=== PATIENT | male | born 1985 | race Caucasian/White ===

== ENCOUNTER 2016-12-13 11:36 | Emergency (ER) | payer OTHER ==
--- NOTE | 2016-12-13 12:00 | ED Physician Documentation ---
Abdominal Pain - HISTORIAN Historian: patient - HPI Chief Complaint: Abdominal Pain Onset: hours (6 hours) Duration: constant, worse Timing: still present Context: denies: out of country travel, bad food Severity: moderate Quality: sharp Associated Symptoms: nausea, vomiting (dry heaves). denies: fever, chills Exacerbated by: nothing Relieved by: nothing Further Comments: yes - ROS CONST: no problems GI/: denies: black stools, bloody urine, bloody stools, dark urine CVS/RESP: none - SOCIAL HX Smoking History: less than 1 pack/day (1/2 ppd) Alcohol Use: none Drug Use: none - FAMILY HX Family History: none - PAST HX Past History: kidney stones Other History: diabetes Type 2 Home Medications: Ambulatory Orders Medication Instructions Recorded Amlodipine Besylate/Benazepril 1 tab PO DAILY 12/13/16 [Amlodipine-Benazepril 10-20 mg] Aspirin [Adult Low Dose Aspirin EC] 81 mg PO DAILY 12/13/16 Atorvastatin Calcium [Lipitor] 40 mg PO DAILY 12/13/16 Carvedilol [Coreg] 25 mg PO BID 12/13/16 HYDROmorphone HCL [Dilaudid] 2 mg PO Q4 PRN #15 tablet 12/13/16 Metformin HCl [Glucophage] 500 mg PO BID 12/13/16 Omeprazole [Prilosec] 40 mg PO BID 12/13/16 Tamsulosin HCl [Flomax] 0.4 mg PO [id number] #7 cap.er.24h 12/13/16 Trazodone HCl [Trazodone HCl] 50 mg PO HS 12/13/16 buPROPion [Wellbutrin Sr] 150 mg PO DAILY 12/13/16 Allergies/Adverse Reactions: Allergies Allergy/AdvReac Type Severity Reaction Status Date / Time No Known Allergies Allergy Verified 12/13/16 12:21 - VITAL SIGNS Vital Signs: Vital Signs Temp Pulse Resp BP Pulse Ox 98.8 F 79 20 133/78 98 12/13/16 14:14 12/13/16 14:14 12/13/16 14:14 12/13/16 14:14 12/13/16 14:14 Progress - Progress Progress: 12:23 Toradol did not help much with the pain. It has not changed in character much 12:59 Fentanyl helped a little with the pain but now is back again. Will try some diluadid. 13:14 Patient feeling better with dilaudid. 13:56 Patient is starting to have some pain, will give another shot of dilaudid. ED Results Lab/Radiology - Lab Results Lab Results: Lab Results 12/13/16 12/13/16 12:30 12:30 WBC 10.90 K/ul K/ul (4.00-12.00) RBC 5.46 M/ul H M/ul (3.90-5.20) Hgb 16.0 g/dL g/dL (12.0-18.0) Hct 47.7 % % (37.0-53.0) MCV 87.3 fl fl (80.0-100.0) MCH 29.3 pg pg (28.0-34.0) MCHC 33.6 g/dL g/dL (30.0-36.0) RDW 13.1 % % (11.3-14.3) Plt Count 165 K/mm3 K/mm3 (130-400) Neut % (Auto) 63.4 % % (39.0-79.0) Lymph % (Auto) 25.3 % % (16.0-50.0) Eagle % (Auto) 5.4 % % (0.0-11.0) Eos % (Auto) 2.8 % % (0.0-6.8) Baso % (Auto) 0.9 (0.0-1.5) Neut # (Auto) 6.9 # k/uL # k/uL (1.4-7.7) Lymph # (Auto) 2.8 # k/uL # k/uL (0.6-4.0) Eagle # (Auto) 0.6 # k/uL # k/uL (0.0-0.9) Eos # (Auto) 0.3 # k/uL # k/uL (0.0-0.6) Baso # (Auto) 0.1 # k/uL # k/uL (0.0-0.5) Reactive Lymphs % 2.2 % % (0.0-5.0) Reactive Lymphs # 0.2 # k/uL # k/uL (0.0-0.8) Sodium 135 mmol/L L mmol/L (136-145) Potassium 4.1 mmol/L mmol/L (3.5-5.0) Chloride 100 mmol/L mmol/L (98-110) Carbon Dioxide 30 mmol/L mmol/L (20-32) BUN 13 mg/dL mg/dL (10-26) Creatinine 1.0 mg/dL mg/dL (0.4-1.5) Estimated Creat Clear 157 Est GFR ( Amer) > 60 (60 - ) Est GFR (Non-Af Amer) > 60 (60 - ) Glucose 185 mg/dL H mg/dL (70-99) Calcium 10.2 mg/dL mg/dL (8.5-10.5) Total Bilirubin 0.3 mg/dL mg/dL (0.2-1.2) AST 26 U/L U/L (0-41) ALT 39 U/L U/L (0-45) Alkaline Phosphatase 74 U/L U/L (46-116) Total Protein 8.1 g/dL g/dL (6.0-8.5) Albumin 5.1 g/dL g/dL (3.0-5.5) Amylase 71 U/L U/L (20-104) - Radiology Radiology Impressions: Name: JOYCE CM Date: Dec 13, 2016 12:40:26 PM CDT Modality Type: CT\SR Gender: M Description: CT ABD & PELVIS W/O CO : 89 Institution: [facility] Physician: DONNA HAWKINS - ER CT abdomen pelvis without contrast History:PT STATES LEFT ABDOMEN PAIN THAT GOES INTO BACK Technique: Transaxial computed tomographic images of the abdomen and pelvis were obtained without the use of intravenous contrast according to standard protocol. Findings: The lung bases are clear. Heart size is normal. The liver, gallbladder, pancreas, spleen, and adrenal glands are normal. There is left mid ureteral calculus measuring 5 mm which results in left proximal hydronephrosis and hydroureter. No additional intrarenal calculi present. No bowel wall thickening or dilation. Normal appendix. Trace atherosclerosis is present within the right common iliac artery. No adenopathy present. The bladder is normal. There is no free fluid. No osseous acute injury. Impression: 1. Left mid ureteral calculus measuring 5 mm which results in left proximal hydronephrosis and hydroureter. 2. No additional intrarenal calculi present - Orders Orders: ED Orders Category Date Time Status Place IV Lock 1T Care 12/13/16 12:[address] ABD & PELVIS W/O CON Stat Exams 12/13/16 Taken AMYLASE Routine Lab 12/13/16 12:30 Completed CBC/PLATELET/DIFF Routine Lab 12/13/16 12:30 Completed CMP Routine Lab 12/13/16 12:30 Completed URINALYSIS Routine Lab 12/13/16 Ordered 0.9 % Sodium Chloride [Normal Saline] 1,000 ml Med 12/13/16 12:11 Discontinued IV .STK-MED 0.9 % Sodium Chloride [Normal Saline] 1,000 ml Med 12/13/16 12:30 Discontinued IV Q10H HYDROmorphone HCL/PF [Dilaudid] Med 12/13/16 12:58 Discontinued 1 mg IVP NOW ONE HYDROmorphone HCL/PF [Dilaudid] Med 12/13/16 13:55 Discontinued 1 mg IVP NOW ONE Ketorolac Tromethamine [Toradol] Med 12/13/16 12:07 Discontinued 30 mg IVP NOW ONE Tamsulosin HCl [Flomax] Med 12/13/16 13:12 Discontinued 0.4 mg PO .STK-MED ONE Tamsulosin HCl [Flomax] Med 12/13/16 18:00 Discontinued 0.4 mg PO [id number] fentaNYL CITRATE/PF [Duragesic] Med 12/13/16 12:26 Discontinued 100 mcg .ROUTE .STK-MED ONE fentaNYL CITRATE/PF [Duragesic] Med 12/13/16 12:26 Discontinued 50 mcg IVP NOW ONE Abdominal Pain Physical Exam - Physical Exam General Appearance: alert, moderate distress EENT: ENT inspection normal NECK: normal inspection, supple. No: lymphadenopathy RESPIRATORY: no resp distress, chest non-tender, breath sounds normal. No: wheezes, rales CVS: reg rate & rhythm, heart sounds normal, equal pulses, no murmur, no gallop ABDOMEN: soft, no organomegaly, no distension, tenderness (Left side lateral to umbilicus), decreased BS. No: rebound, guarding BACK: CVA tenderness (L) (mild) SKIN: warm/dry, normal color EXTREMITIES: non-tender, normal range of motion NEURO: oriented X3, mood/affect nml, cognition normal Vital Signs: Vital Signs Temp Pulse Resp BP Pulse Ox 98.8 F 79 20 133/78 98 12/13/16 14:14 12/13/16 14:14 12/13/16 14:14 12/13/16 14:14 12/13/16 14:14 Discharge Clincal Impression: Kidney stone on left side Prescriptions: HYDROmorphone HCL [Dilaudid] 2 mg PO Q4 PRN #15 tablet PRN Reason: Pain Tamsulosin HCl [Flomax] 0.4 mg PO [id number] #7 cap.er.24h Referrals: Primary Doctor,No [Primary Care Provider] - 2 Days Additional Instructions: Drink a lot of fluids. Watch for any fever or chills, if you develop any you need to be seen again. Strain your urine as directed. Keep a close eye on your blood sugars. Follow-up wit your primary care provider within the next 1-2 weeks. Home Medications: Ambulatory Orders Amlodipine Besylate/Benazepril [Amlodipine-Benazepril 10-20 mg] 1 tab PO DAILY 12/13/16 Aspirin [Adult Low Dose Aspirin EC] 81 mg PO DAILY 12/13/16 Atorvastatin Calcium [Lipitor] 40 mg PO DAILY 12/13/16 Carvedilol [Coreg] 25 mg PO BID 12/13/16 HYDROmorphone HCL [Dilaudid] 2 mg PO Q4 PRN #15 tablet 12/13/16 Metformin HCl [Glucophage] 500 mg PO BID 12/13/16 Omeprazole [Prilosec] 40 mg PO BID 12/13/16 Tamsulosin HCl [Flomax] 0.4 mg PO [id number] #7 cap.er.24h 12/13/16 Trazodone HCl [Trazodone HCl] 50 mg PO HS 12/13/16 buPROPion [Wellbutrin Sr] 150 mg PO DAILY 12/13/16 Condition: Stable Disposition: 01 HOME, SELF-CARE Decision to Admit: NO Date of Decison to Admit: 12/13/16 Decision Time: 13:45
[2016-12-13] MEDS ORDERED: KETOROLAC TROMETHAMINE 30 MG/1ML VIAL IVP ONE (12:07)
[2016-12-13] MEDS ORDERED: 0.9 % SODIUM CHLORIDE 1,000 ML IV ONE (12:11)
[2016-12-13] MEDS ORDERED: fentaNYL CITRATE/PF 100 MCG/ 2ML AMP ONE (12:26)
[2016-12-13] MEDS ORDERED: fentaNYL CITRATE/PF 100 MCG/ 2ML AMP IVP ONE (12:26)
[2016-12-13] MEDS ORDERED: 0.9 % SODIUM CHLORIDE 1,000 ML IV SCH (12:30)
[2016-12-13 12:34] LABS: BASOPHILS % 0.9 (0.0-1.5); EOSINOPHILS % 2.8 % (0.0-6.8); MEAN CORPUSCULAR HEMOGLOBIN 29.3 pg (28.0-34.0); MEAN CORPUSCULAR VOLUME 87.3 fl (80.0-100.0); MONOCYTES % 5.4 % (0.0-11.0); NEUTROPHILS # 6.9 # k/uL (1.4-7.7)
[2016-12-13 12:50] LABS: eGFR (African) > 60; eGFR (Non-African) > 60
[2016-12-13] MEDS ORDERED: HYDROmorphone HCL/PF 1 MG/ML DISP.SYRIN IVP ONE ×2 (12:58→13:55)
[2016-12-13] MEDS ORDERED: TAMSULOSIN HCL 0.4 MG CAP.ER.24H PO ONE (13:12)
[2016-12-13 14:16] VITALS: BP 133/78
[2016-12-13] MEDS ORDERED: TAMSULOSIN HCL 0.4 MG CAP.ER.24H PO SCH (18:00)
--- NOTE | 2016-12-13 18:04 | Diagnostic Imaging Report ---
DONNA HAWKINS~ [facility] [id number] [facility] [address] [place], [place]. [address] ~ ~ ~ ~ Report Submission Date: Dec 13, 2016 1:04:59 PM CDT Patient ~ Study Name: JOYCE CM ~ Date: Dec 13, 2016 12:40:26 PM CDT ~ Modality Type: CT\SR Gender: M ~ Description: CT ABD & PELVIS W/O CO : 89 ~ Institution: [facility] Physician: DONNA HAWKINS ~ ~ ~ ~ CT abdomen pelvis without contrast History:PT STATES LEFT ABDOMEN PAIN THAT GOES INTO BACK Technique:~Transaxial computed tomographic images of the abdomen and pelvis were obtained without the use of intravenous contrast according to standard protocol. Findings: The lung bases are clear. Heart size is normal. The liver, gallbladder, pancreas, spleen, and adrenal glands are normal. There is left mid ureteral calculus measuring 5 mm which results in left proximal hydronephrosis and hydroureter. No additional intrarenal calculi present. No bowel wall thickening or dilation. Normal appendix. Trace atherosclerosis is present within the right common iliac artery. No adenopathy present. The bladder is normal. There is no free fluid. No osseous acute injury. Impression: 1. ~Left mid ureteral calculus measuring 5 mm which results in left proximal hydronephrosis and hydroureter. 2. ~No additional intrarenal calculi present ~ Electronically signed on Dec 13, 2016 1:04:59 PM CDT by: Leif BARBA
== END 2016-12-13 14:13 | disposition home or self-care (01) ==
LOC: ED 11:36
DX: N20.0 Calculus of kidney (principal)
CPT/HCPCS: 74176; 80053; 82150; 85025; J1170; J1885; J3010; J7030; 96361; 96374; 96375; 96376; 99283; S1016

== ENCOUNTER 2017-05-06 10:55 | Outpatient (CLI) | payer OTHER ==
[2017-05-06 11:11] LABS: BASOPHILS % 0.7 (0.0-1.5); EOSINOPHILS % 2.1 % (0.0-6.8); MEAN CORPUSCULAR HEMOGLOBIN 30.4 pg (28.0-34.0); MEAN CORPUSCULAR VOLUME 87.6 fl (80.0-100.0); MONOCYTES % 4.1 % (0.0-11.0); NEUTROPHILS # 8.8 # k/uL (1.4-7.7)
[2017-05-06 11:49] LABS: eGFR (African) > 60; eGFR (Non-African) > 60
== END 2017-05-06 11:00 ==
LOC: LAB 10:55
PROVIDERS: ATTEND Physician Assistant
DX: R53.83 Other fatigue (principal); E11.9 Type 2 diabetes mellitus without complications
CPT/HCPCS: 36415; 80053; 83036; 85025